=== PATIENT | male | born 1960 | race Caucasian/White ===

== ENCOUNTER → 2017-08-18 08:55 | Outpatient (CLI) | payer OTHER ==
[2012-12-24 06:37] VITALS: BMI 28.8
== END | disposition home or self-care (01) ==
LOC: D.NM 08:55
DX: M25.562 Pain in left knee (principal)

== ENCOUNTER → 2017-08-24 09:45 | Outpatient (CLI) | payer OTHER ==
[2012-12-24 06:37] VITALS: BMI 28.8
[2017-08-24 16:25] LABS: BASOPHILS 0.2 % (0-2); EOSINOPHILS 1.5 % (0-7); HEMATOCRIT 43.1 % (42.0-54.0); HEMOGLOBIN 15.2 g/dL (13.5-17.5); IMMATURE GRANULOCYTES 0.2 % (0-5); LYMPHOCYTES 26.9 % (15-50); MCH 33.3 pg (26.0-34.0); MCHC 35.3 g/dL (31.0-37.0); MCV 94.3 fL (80.0-100.0); MEAN PLATELET VOLUME 11.2 fL (7.4-10.4); MONOCYTES 8.7 % (2-11); NEUTROPHILS 62.5 % (40-80); PLATELET COUNT 178 10x3/uL (130-400); RBC 4.57 10x6/uL (4.20-6.10); RDW 12.7 % (11.5-14.5); WBC 6.5 10x3/uL (4.8-10.8)
[2017-08-24 17:30] LABS: ERYTHROCYTE SEDIMENTATION RATE 2 mm/hr (0-20)
== END | disposition home or self-care (01) ==
LOC: D.LABREF 09:45
PROVIDERS: Orthopaedic Surgery
DX: M25.562 Pain in left knee (principal)